=== PATIENT | female | born 1970 | race Caucasian/White ===

== ENCOUNTER 2023-09-15 12:10 | Emergency (ER) | payer OTHER, SELFPAY ==
[2023-09-15 12:43] VITALS: BP 149/83; PULSE 85; TEMP 36.9; O2SAT 96; BMI 29.8
--- NOTE | 2023-09-15 12:50 | XR_ITS ---
The [address] [address] Patient Name: SKYLAR SANDERS MRN: [id number] date: 1970 Sex: F Assigned Patient Location: ER Current Patient Location: ED.MAIN Accession/Order Number: [id number] Exam Date: 09/15/2023 12:55 Report Date: 09/15/2023 13:43 At the request of: STEPHAN WOOD Procedure: XR knee LT 3V HISTORY: Left knee pain and swelling. The patient reportedly fell one month ago. XR knee LT 3V: 09/15/2023 12:55 PM EDT COMPARISON: None. FINDINGS: 3 views of the left knee were obtained. No fracture, dislocation, or joint space narrowing is seen. There is a moderate-sized suprapatellar joint effusion. XR/XR knee LT 3V IMPRESSION: There is a moderate-sized suprapatellar joint effusion, but no fracture or dislocation is seen. If there is clinical concern for possible internal derangement of the knee as a cause for this joint effusion, then an outpatient MRI of the knee could be obtained. Electronically authenticated by: SUYAPA PERDUE Date: 09/15/2023 13:43
--- NOTE | 2023-09-15 13:09 | ED_ITS ---
HPI - Extremity Problem General Chief complaint: Extremity Problem, Nontraumatic Stated complaint: LOWER EXTREMITY PAIN Time Seen by Provider: 09/15/23 13:01 Source: patient Mode of arrival: walk-in Limitations: no limitations History of Present Illness HPI Narrative: Patient here with pain in her left knee and also a little bit in her heel. She had a previous fall. At the time of fall she sliced and had a wound over her distal Achilles area. It is healing up but still sore in that area. She also has pain over the medial posterior aspect of her left knee. The rest extremities are normal. She is seen by nursing staff in triage x-ray. She has not seen a local orthopedic doctor. Related Data Home Medications ?Medication ?Instructions ?Recorded ?Confirmed ibuprofen 600 mg tablet (IBU) 600 mg PO ONCE 09/15/23 09/15/23 Allergies Allergy/AdvReac Type Severity Reaction Status Date / Time Penicillins Allergy Verified 09/15/23 12:48 Exam Narrative Exam Narrative: After being evaluated by the nursing staff she was triaged and had x-rays of her left knee. Upon returning from x-ray I examined her. Both knees were simultaneously complaint. There is no obvious joint effusion on either knee. The patella is not ballotable. There is no deviation of the patella range of motion. Knee range of motion is really not restricted. Anterior and posterior drawer sign were negative on the left side. There is no instability. Medial stressing of the knee reproduces some pain in the posterior medial exterior joint line. Testing for cartilaginous injury was done and she does not have any abnormal response or discomfort. Examining her heel she has a small wound that is healing. There is no pain with palpation over her Achilles area Achilles range of motion is normal and unrestricted. There is no erythema cellulitis or evidence of foreign body. Constitutional Vital Signs, click to edit/add: Last Vital Signs Temp 98.4 F 09/15/23 12:43 Pulse 85 09/15/23 12:43 Resp 14 09/15/23 12:43 BP 149/83 H 09/15/23 12:43 Pulse Ox 96 09/15/23 12:43 O2 Del Method Room Air 09/15/23 12:43 Course Vital Signs Vital signs: Vital Signs Temperature 98.4 F 09/15/23 12:43 Pulse Rate 85 09/15/23 12:43 Respiratory Rate 14 09/15/23 12:43 Blood Pressure 149/83 H 09/15/23 12:43 Pulse Oximetry 96 09/15/23 12:43 Oxygen Delivery Method Room Air 09/15/23 12:43 Temperature 98.4 F 09/15/23 12:43 Pulse Rate 85 09/15/23 12:43 Respiratory Rate 14 09/15/23 12:43 Blood Pressure 149/83 H 09/15/23 12:43 Pulse Oximetry 96 09/15/23 12:43 Oxygen Delivery Method Room Air 09/15/23 12:43 MDM - Extremity (Nontraumatic) MDM Narrative Medical decision making narrative: This patient has some discomfort over the medial joint line with stressing the knee but there is a good endpoint. There is no obvious joint effusion. X-rays were negative of both the heel and the knee area. I would like her to wear knee brace and then follow-up with orthopedics Discharge Plan Discharge Stand Alone Forms: Portal Instructions Chief Complaint: Extremity Problem, Nontraumatic Clinical Impression: Left knee sprain Patient Disposition: Home, Self-Care Time of Disposition Decision: 13:33 Prescriptions / Home Meds: No Action ibuprofen [IBU] 600 mg tablet 600 mg PO ONCE Print Language: Polish Additional Instructions: Wear knee brace for approximately 10 days. Follow-up with orthopedics for further evaluation. May use [id number] NSAIDs as needed Referrals: Physician,Non-Staff, MD [Primary Care Provider] - 1 week
--- NOTE | 2023-09-15 13:19 | XR_ITS ---
The [place] [id number] Patient Name: SKYLAR SANDERS MRN: [id number] date: 1970 Sex: F Assigned Patient Location: ER Current Patient Location: ER Accession/Order Number: [id number] Exam Date: 09/15/2023 13:10 Report Date: 09/15/2023 17:07 At the request of: STEPHAN WOOD Procedure: XR foot LT min 3V HISTORY: Left heel pain after a fall one month ago. XR foot LT min 3V: 09/15/2023 1:10 PM EDT COMPARISON: None. FINDINGS: 3 views of the left foot were obtained. No acute fracture or dislocation is seen. There is a small Sylvester's deformity of the calcaneus. There is a small enthesophyte at the insertion of the Achilles tendon on the calcaneus. There is mild soft tissue prominence in the expected location of the distal Achilles tendon at the level of the posterosuperior aspect of the calcaneus. No joint space narrowing is seen. The tarsometatarsal joints appear within normal limits in alignment. XR/XR foot LT min 3V IMPRESSION: 1. No acute fracture or dislocation is seen. 2. There is mild prominence of the soft tissues in the expected location of the distal Achilles tendon adjacent to the posterosuperior aspect of the calcaneus which suggests the possibility of underlying tendinopathy or strain, but this is nonspecific. If the patient is having symptoms referable to this region, then an outpatient MRI of the ankle could be obtained. Electronically authenticated by: SUYAPA PERDUE Date: 09/15/2023 17:07
== END 2023-09-15 13:45 | disposition home or self-care (01) ==
PROVIDERS: Emergency Provider Emergency Medicine Emergency Medical Services
DX: S83.92XA Sprain of unspecified site of left knee, initial encounter (principal); X58.XXXA Exposure to other specified factors, initial encounter; Z91.81 History of falling
CPT/HCPCS: 73562; 73630; 99284

== ENCOUNTER 2025-04-23 18:57 | Emergency (ER) | payer OTHER, SELFPAY ==
[2025-04-23 19:01] VITALS: BP 166/79; PULSE 72; O2SAT 99; BMI 28.0
--- NOTE | 2025-04-23 19:03 | XR_ITS ---
The [place] [id number] Patient Name: SKYLAR SANDERS MRN: [id number] date: 1970 Sex: F Assigned Patient Location: ER Current Patient Location: ED.MAIN Accession/Order Number: [id number] Exam Date: 04/23/2025 19:28 Report Date: 04/23/2025 19:54 At the request of: KODY VASQUEZ DO Procedure: XR knee RT 4V 4 views of the right knee CLINICAL HISTORY: pain COMPARISON: None FINDINGS: No fracture is identified. Joint spaces preserved. Soft tissues unremarkable. XR/XR knee RT 4V IMPRESSION: Negative acute osseous findings. Impression dictated by: Deniz Morris M.D. 04/23/2025 7:54 PM Dictation Location: [place] [address] Electronically authenticated by: [id number] Y Date: 04/23/2025 19:54
[2025-04-23 19:05] VITALS: TEMP 36.6
--- NOTE | 2025-04-23 19:43 | PC.NURSE ---
right knee pain and swelling after moving furniture and belongings out of one home into another on Tuesday and Tuesday. Since then she has been taking Motrin and her prescription medications which include Gabapentin and muscle relaxers with little to no relief. She has also been elevating the leg and using ice.
--- NOTE | 2025-04-23 20:12 | ED_ITS ---
HPI HPI - General Adult General Chief complaint: Extremity Injury, Lower Stated complaint: RIGHT KNEE SWOLLEN SINCE TUESDAY Time Seen by Provider: 04/23/25 19:39 Source: patient Mode of arrival: walk-in Limitations: no limitations History of Present Illness HPI narrative: Patient is a 54-year-old female that presents with complaints of right knee pain that has been present for 3 days since she was helping her daughter move out of apartment. She denies any specific injury but states there was a lot of stairs. She has been resting for the past 3 days and continues to have swelling and persistent pain and pain with ambulation. She denies any previous injury or surgeries. Most of her pain is located on the medial side of the knee. Related Data Home Medications ?Medication ?Instructions ?Recorded ?Confirmed ibuprofen 600 mg tablet (IBU) 600 mg PO ONCE 09/15/23 09/15/23 Previous Rx's ?Medication ?Instructions ?Recorded prednisone 50 mg tablet 50 mg PO DAILY 5 days #5 tab s 04/23/25 Allergies Allergy/AdvReac Type Severity Reaction Status Date / Time Penicillins Allergy Unknown Verified 04/23/25 19:01 Review of Systems ROS Status of ROS 10 or more systems reviewed and unremark able except as noted in history and below PFSH PFSH Social History Little interest or pleasure in doing things: not at all Feeling down, depressed, or hopeless: not at all Exam Narrative Exam Narrative: General: No distress, age-appropriate, ambulates with antalgic gait Skin: Warm, dry, no pallor. No rash. Head: Normocephalic, atraumatic. Neck: Supple, non-tender. Eye: Pupils are equal, round and EOMI. No scleral icterus. Ears, Nose, Mouth, and Throat: No nasal mucosal hypertrophy. Oral mucosa is moist, no posterior oropharynx erythema, uvula is mid-line Cardiovascular: Regular Rate and Rhythm without murmur, gallop or rub. Respiratory: No accessory muscle use or respiratory distress. Lungs are clear to auscultation, no wheezing, rales or rhonchi Chest Wall: no tenderness Back: No midline thoracic or lumbar vertebral tenderness. Musculoskeletal: Full ROM of all extremities, no calf or popliteal tenderness. Right knee ROM 0?140. Varus/valgus stress negative for pain or instability. Delaney and anterior drawer negative for pain or instability. Pain cannot be reproduced on exam. Medial and lateral joint lines nontender with palpation. No erythema. Mild joint effusion. Neurological: A&O x4. No cranial nerve dysfunction observed. No truncal ataxia. Moves all extremities. Sensation intact. Psychiatric: Cooperative and interactive. Normal mood and affect. Constitutional Vital Signs, click to edit/add: Last Vital Signs Temp 97.8 F 04/23/25 19:05 Pulse 72 04/23/25 19:01 Resp 18 04/23/25 19:01 BP 166/79 H 04/23/25 19:01 Pulse Ox 99 04/23/25 19:01 O2 Del Method Room Air 04/23/25 19:01 Course Vital Signs Vital signs: Vital Signs Pulse Rate 72 04/23/25 19:01 Respiratory Rate 18 04/23/25 19:01 Blood Pressure 166/79 H 04/23/25 19:01 Pulse Oximetry 99 04/23/25 19:01 Oxygen Delivery Method Room Air 04/23/25 19:01 Temperature 97.8 F 04/23/25 19:05 Pulse Rate 72 04/23/25 19:01 Respiratory Rate 18 04/23/25 19:01 Blood Pressure 166/79 H 04/23/25 19:01 Pulse Oximetry 99 04/23/25 19:01 Oxygen Delivery Method Room Air 04/23/25 19:01 Medical Decision Making MDM Narrative Medical decision making narrative: This is a 54-year-old female with 3 days of right knee pain that presented to the ED. The pain started while she was helping her daughter move out of apa tment, there were lots of stairs. She locates the pain as medial knee, pain cannot be reproduced on exam. There is a mild joint effusion. She has full ROM but states it feels stiff. Ligaments are stable. X-ray right knee ordered and reviewed and negative for fracture or dislocation. I discussed results with the patient and her pain is likely stemming from cartilage damage or wear and tear. I did give her 30 mg IM Toradol in the ED. She did drive herself so I will give her [place] 5 mg to go to take at home. We discussed plan for a steroid burst, I prescribed 50 mg prednisone x 5 days at discharge. We also discussed continuing to rest the knee while it is painful with weightbearing by either using a cane, crutches, or walker. She does have a cane at home she can start using. 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 I did discuss follow-up with orthopedics, Dr. Gallegos, his information was placed in the discharge. Patient's pain was controlled in the ED, she was stable for discharge with plan for follow-up with orthopedics. Differential Diagnosis Differential Diagnosis: Knee osteoarthritis, knee fracture, meniscus tear Imaging Data X-ray right knee: Attestation: I have reviewed the pertinent imaging results. Radiologist's impression: ITS Impressions Knee X-Ray 04/23/25 19:03 IMPRESSION: Negative acute osseous findings. Impression dictated by: Deniz Morris M.D. 04/23/2025 7:54 PM Dictation Location: [place] Electronically authenticated by: [id number] Y Date: 04/23/2025 19:54 Discharge Plan Discharge Chief Complaint: Extremity Injury, Lower Clinical Impression: Acute knee pain Patient Disposition: Home, Self-Care Time of Disposition Decision: 20:07 Condition: Good Mode of Transportation: Private Vehicle Prescriptions / Home Meds: New prednisone 50 mg tablet 50 mg PO DAILY 5 Days Qty: 5 0RF No Action ibuprofen [IBU] 600 mg tablet 600 mg PO ONCE Print Language: Macedonian Instructions: Knee Pain (ED) Referrals: Jeff Gallegos DO [Physician, Orthopedics] - 1-2 weeks Physician,Non-Staff, [Primary Care Provider] - 1 week Discharge Date/Time: 04/23/25 20:48
--- OUTSIDE RECORDS SUMMARY | 2025-04-23 20:15 | XMS_ITS | Clinical Summary ---
Author Organization [facility] Address [address] [place] [address] Care Team Providers Care Customer Operations Representative Name Role Phone Pump, Shell APRON TRIMMER Unavailable José Evans MD Primary Care Provider [phone] Allergies Active AllergyReactionsCriticalityNoted DhhxHbcpzffjFtjudwxzepfYgwpg96/27/2018 Other Reaction(s): Unknown Medications MedicationSigDispense QuantityRefillsLast FilledStart DateEnd DateStatus cholecalciferol (Vitamin D-3) 25 MCG (1000 UT) capsule Take 1,000 Units by mouth Daily Pt is unsure of doseActive Multiple Vitamin (multivitamin) capsule Take 1 capsule by mouth DailyActive Cyanocobalamin (Vitamin B-12) [address] under the tongueActive hydroCHLOROthiazide (HYDRODiuril) 25 MG tablet Indications:Essential hypertensionTake 1 tablet (25 mg) by mouth in the morning. 90 tablet 5Active baclofen (Lioresal) 10 MG tablet Indications:Muscle painTake 2 tablets (20 mg) by mouth 2 (two) times a day as needed for muscle spasms 60 tablet 5Active busPIRone (Buspar) 15 MG tablet Indications:Generalized anxiety disorderTake 1 tablet (15 mg) by mouth Daily 90 tablet 6Active gabapentin (Neurontin) 300 MG capsule Indications:Fibromyalgia affecting multiple sitesTake 2 capsules (600 mg) by mouth at bedtime 180 capsule ctive sertraline (Zoloft) 50 MG tablet Indications:Generalized anxiety disorderTake 1 tablet (50 mg) by mouth Daily 90 tablet tive estrogens, conjugated, (Premarin) 1.25 MG tablet Indications:MenopauseTake 1 tablet (1.25 mg) by mouth Daily 90 tablet 5002/25/2026ctive Active Problems ProblemNoted DateDiagnosed DateChronic dufxmmo3401/18/20233589Hdorjiiprdve54/08/2023 Essential dmawlatrqriv66/08/2023Fibromyalgia affecting multiple sites01/18/2023 Generalized anxiety dbshficn00/08/2023H/O: oiwjiynipoef56/08/2023Menopausal gktvhuig92/08/2023Overweight (BMI 25.0-29.9)01/18/2023Recurrent major depressive disorder, in partial bunsjizma18/08/2023Stress at home01/18/2023Surgical sapohysdz94/08/2023Family history of colonic vndlfg4902/14/2020 Encounters DateTypeDepartmentCare JnnpOzclcnvucyc02/15/2025[address]ill [address] [place] [phone] José Evans MD Sxpgpkooi14/04/2025 3:00 PM EDTOffice Visit [facility] [place] [phone] Pump, Shell, APRON TRIMMER Generalized anxiety disorder (Primary Dx); Essential hypertension ; Screening exam for skin pdetea7902/14/2025amboo flowsheet [address] [place] [phone] Pump, Shell, APRON TRIMMER 02/14/20251440Hxlush31/14/2025Orders Only [address] [place] [phone] Pump, Shell, APRON TRIMMER Generalized anxiety disorder (Primary Dx)01/23/2025Telephone [address] [place] [phone] Pump, Shell, APRON TRIMMER from Last 3 Months Immunizations ImmunizationAdministration DatesNext DueInfluenza, injectable, quadrivalent 03/05/2020Influenza, injectable, quadrivalent, preservative free03/29/2016 Influenza, seasonal, wgfzryqtuw23/16/2012Pneumococcal Polysaccharide PPSV23 02/29/2012 Family History Medical HistoryRelationNameCommentsBipolar disorderDaughterAlcohol abuseFather Heart diseaseFatherHypertensionFatherLung cancerFathermesothiliomaFatherCancer Maternal GrandfatherHypertensionMotherColon cancerPaternal GrandfatherBipolar disorderSonRelationNameStatusCommentsDaughterFatherDeceasedMaternal Grandfather MotherPaternal GrandfatherSon Social History Tobacco UseTypesPacks/DayYears UsedDateSmoking Tobacco: NeverSmokeless Tobacco: Never Tobacco Cessation:Counseling Given: Not Answered Alcohol UseStandard Drinks/WeekCommentsNot Currently0 (1 standard drink = 0.6 oz pure alcohol)a few times a year caffeine: 1 cup dailyAUDIT-CAnswerDate Recorded Q1: How often do you have a drink containing alcohol?Monthly or less05/14/2024 Q2: How many drinks containing alcohol do you have on a typical day when you are drinking?1 or Q3: How often do you have six or more drinks on one occasion?Never05/14/2024HQ-2AnswerDate RecordedPatient Health Questionnaire-2 Oywgv975CommentsUnknownSex and Gender InformationValueDate RecordedSex Assigned at BirthNot on fileLegal NddNegtxt48/15/2023 6:43 PM EDT Gender IdentityNot on fileSexual OrientationNot on file Last Filed Vital Signs Vital SignReadingTime TakenCommentsBlood Kwrwhnhy591/6609 2:57 PM EDT Sxtti0918 2:57 PM ZALBjjzudforxo54.8 ??C (98.3 ??F)02/14/2025 2:57 PM EDTRespiratory Mvxp285407/04/2022 9:29 AM ESTOxygen Urryryozrv46%02/14/2025 2:57 PM EDTInhaled Oxygen Concentration--Mwtltm33.6 kg (182 lb 3.2 oz)02/14/2025 2:57 PM BNNFauhot971.4 cm (5' 5.5 )02/14/2025 2:57 PM EDTBody Mass Index29.86 02/14/2025 2:57 PM EDT Plan of Treatment Health MaintenanceDue DateLast DoneCommentsCT Szltjefljgha59/13/1970FIT-DNA 1969FIT1969FOBT1969 9763Lcvtnkhnzmseu13/13/5395Kuagxiwnf00/14/2024 05/26/2023, 04/08/2022, 08/29/2020, Additional history existsCOVID-19 Vaccine ( season)2025Influenza Vaccine (#1)5003/05/2020, 03/29/2016, 03/28/20128443Npovsqrimoc27Colorectal Cancer Screening 03/03/2030Pneumococcal Vaccine: Pediatrics (0 to 5 Years) and At-Risk Patients (6 to 64 Years)Aged Out02/29/2012No longer eligible based on patient's age to complete this topicCervical Cancer ScreeningDiscontinuedHPV/CotestDiscontinued 01/30/2020Pap SmearDiscontinued Procedures Procedure NamePriorityDate/TimeAssociated DiagnosisCommentsBI MAMMOGRAM SCREENING TOMOSYNTHESIS FPPQZDTFBFoblcsx30/14/2023 8:55 AM EST Encounter for screening mammogram for malignant neoplasm of breast UAYCVHMBCKAKmoyxuh67/21/2020 12:00 PM EDT Q - THINPREP(R) TIS AND HPV MRNA E6/E7 RFL HPV 16,18/48Fugjduc56/19/2020 from Last 3 Months or Most Recently Relevant to Health Maintenance Results * Bilateral screening mammogram with tomosynthesis (05/26/2023 8:55 AM EST) Anatomical RegionLateralityModalityBreastBilateralMammographySpecimen (Source) Anatomical Location / LateralityCollection Method / VolumeCollection Time Received Time05/27/2023 2:52 PM EST Impressions 05/30/2023 7:44 AM EST BIRADS 2 - Benign. Follow-up: ?Routine Screening Mamm . Board Certified Radiologists. ??Accredited by the ACR and FDA. MAMMOGRAPHY IS VERY IMPORTANT TO YOUR HEALTH. ??THE [place] CAN[employer] SOCIETY GUIDELINES RECOMMEND THAT WOMEN 40 YEARS OF AGE AND OLDER SHOULD HAVE A MAMMOGRAM EVERY YEAR. A REMINDER LETTER WILL BE SENT AT THE APPROPRIATE TIME. ??THIS FACILITY UTILIZES A REMINDER SYSTEM TO ENSURE ALL PATIENTS RECEIVE REMINDER NOTIFICATIONS AT THE APPROPRIATE TIME BASED ON THE RECOMMENDATIONS OF THIS EXAM. THIS INCLUDES REMINDERS FOR ROUTINE SCREENING MAMMOGRAMS, DIAGNOSTIC MAMMOGRAMSIN WHICH THE PATIENT IS ASKED TO RETURN FOR ADDITIONAL VIEWS, OR OTHER BREAST IMAGING INTERVENTIONSWHEN APPROPRIATE. THE PATIENT WILL BE PLACED IN THE APPROPRIATE REMINDER SYSTEM INCLUDING A REMINDER AT THE APPROPRIATE TIME FOR ANY PENDING ADDITIONAL VIEWS. TRANSCRIBED BY: ? ELECTRONICALLY SIGNED BY: Frank Moore MD Narrative 05/30/2023 7:44 AM EST EXAMINATION: BI MAMMOGRAM SCREENING TOMOSYNTHESIS BILATERAL CLINICAL HISTORY: screening COMPARISON: August 29, 2020. RESULT: Digital mammography and 3D tomosynthesis of bilateral breasts was performed. There are scattered areas of fibroglandular density. There is no suspicious mass, asymmetry, architectural distortion, or calcification. ??Typically benign calcifications. ??Overall appearance stable. ?? Procedure Note Frank Moore MD - 05/30/2023 EXAMINATION: BI MAMMOGRAM SCREENING TOMOSYNTHESIS BILATERAL CLINICAL HISTORY: screening COMPARISON: August 29, 2020. RESULT: Digital mammography and 3D tomosynthesis of bilateral breasts wasperformed. There are scattered areas of fibroglandular density. There is no suspicious mass, asymmetry, architectural distortion, or calcification. Typically benign calcifications. Overall appearance stable. IMPRESSION: BIRADS 2 - Benign. Follow-up: Routine Screening Mamm . Board Certified Radiologists. Accredited by the ACR and FDA. MAMMOGRAPHY IS VERY IMPORTANT TO YOUR HEALTH. THE [place] CANC[employer] SOCIET[employer] GUIDELINES RECOMMEND THAT WOMEN 40 YEARS OF AGE AND OLDER SHOULD HAVE AMAMMOGRAM EVERY YEAR. A REMINDER LETTER WILL BE SENT AT THE APPROPRIATE TIME. THIS FACILITYUTILIZES A REMINDER SYSTEM TO ENSURE ALL PATIENTS RECEIVE REMINDERNOTIFICATIONS AT THE APPROPRIATE TIME BASED ON THE RECOMMENDATIONS OF THISEXAM. THIS INCLUDES REMINDERS FOR ROUTINE SCREENING MAMMOGRAMS, DIAGNOSTICMAMMOGRAMS IN WHICH THE PATIENT IS ASKED TO RETURN FOR ADDITIONAL VIEWS,OR OTHER BREAST IMAGING INTERVENTIONS WHEN APPROPRIATE. THE PATIENT WILLBE PLACED IN THE APPROPRIATE REMINDER SYSTEM INCLUDING A REMINDER AT THEAPPROPRIATE TIME FOR ANY PENDING ADDITIONAL VIEWS. TRANSCRIBED BY: ELECTRONICALLY SIGNED BY: Frank Moore MD Authorizing ProviderResult TypeResult StatusElvia Rodriguezefe DOIMG BI PROCEDURES Final Result * Colonoscopy (03/03/2020 12:00 PM EDT)Anatomical RegionLateralityModality EndoscopySpecimen (Source)Anatomical Location / LateralityCollection Method / VolumeCollection TimeReceived Time03/03/2020 12:00 PM EDT Narrative 03/03/2020 12:00 PM EDT PERFORMED AT [facility] LOCATION:[id number] 10 yrs Procedure Note CONVERSION, GENERIC - 10/27/2022 PERFORMED AT [facility] LOCATION:[id number] 9 yrs Authorizing ProviderResult TypeResult StatusJonathan F DillerENDOSCOPY PROCEDURE ORDERABLESFinal Result * Q - THINPREP(R) TIS AND HPV MRNA E6/E7 RFL HPV 16,18/45 (01/30/2020)Component ValueRef RangeTest MethodAnalysis TimePerformed AtPathologist Signature CLINICAL INFORMATION:None givenNOMS LEGACY EXTERNAL LABLMP:None givenNOMS LEGACY EXTERNAL LABPREV. PAP:None givenN[facility]GAC[facility] EXTERNAL LABPREV. BX:None givenN[facility] EXTER[facility] LABSOURCE:None givenN[facility] STATEMENT OF ADEQUACY:SEE NOTENOMS LEGACY EXTERNAL LABComment: Satisfactory for evaluation. Endocervical/transformation zone component absent. INTERPRETATION/RESULT:Negative for intraepithelial lesion or malignancy.[facility] LABCOMMENT:This Pap test has been evaluated with computer assisted technology.[facility] LABCYTOTECHNOLOGIST:SEE NOTESee Note: [facility]TER[facility] LABComment: Reference Range: ZL, CT(ASCP) CT screening location: [facility], [address] [place] [address], [place] [address]. COMMENTSEE NOTENOMS LEGACY EXTERNAL LABComment: EXPLANATORY NOTE: The Pap is a screening test for cervical cancer. It is not a diagnostic test and is subject to false negative and false positive results. It is most reliable when a satisfactory sample, regularly obtained, is submitted with relevant clinical findings and history, and when the Pap result is evaluated along with historic and current clinical information. HPV MRNA E6/E7Not DetectedNot DetectedNOMS LEGACY EXTERNAL LABComment: This test was performed using the APTIMA HPV Assay ([employer] This assay detects E6/E7 viral messenger RNA (mRNA) from 14 high-risk HPV types (16,18,31,33,35,39,45,51,52,56,58,59,66,68). The analytical performance characteristics of this assay have been determined by [facility]. The modifications have not been cleared or approved by the FDA. This assay has been validated pursuant to the CLIA regulations and is used for clinical purposes. Specimen (Source)Anatomical Location / LateralityCollection Method / Volume Collection TimeReceived Time01/30/2020 Narrative Authorizing ProviderResult TypeResult StatusRobin Regina Hassan NPECW LABSFinal ResultPerforming OrganizationAddressCity/State/ZIP CodePhone Number [facility] from Last 3 Months or Most Recently Relevant to Health Maintenance Insurance Care Teams Team MemberRelationshipSpecialtyStart DateEnd Date Shell Lucas NP [address] [place], [place] [phone] [facility]03/13/24 José Evans MD [address] [place] [address] [facility]02/14/25
--- OUTSIDE RECORDS SUMMARY | 2025-04-23 20:15 | XMS_ITS | Clinical Summary ---
Author Organization [facility] Address [id number] [place] [address] Care Team Providers Care Interchange Agent Name Role Phone Suraj Reid MD Primary Care Provider Allergies Active AllergyReactionsCriticalityNoted LjrmStqbuwcxJzavtlpzxmzXcctt77/27/2018 Medications MedicationSigDispense QuantityRefillsLast FilledStart DateEnd DateStatus baclofen (LIORESAL) 10 mg tablet Take 10 mg by mouth once daily at bedtime.Active gabapentin (NEURONTIN) 100 mg capsule Take 100 mg by mouth 3 (three) times a day.Active busPIRone (BUSPAR) 15 mg tablet Take 15 mg by mouth 2 (two) times a day.01/16/2020Active PREMARIN 1.25 mg tablet Take 1.25 mg by mouth daily.01/21/2020Active sertraline (ZOLOFT) 100 mg tablet Take 100 mg by mouth daily.01/21/2020Active Active Problems ProblemNoted DateDiagnosed DateEncounter for screening tmmyoqejkfo65/03/2020 Family history of colonic cruylv9302/14/2020 Family History Medical HistoryRelationNameCommentsAlcohol abuseBrother 1Alcohol abuseBrother 2 Bipolar disorderDaughterAlcohol abuseFatherHeart diseaseFatherHypertensionFather Lung cancerFatherCancerMaternal GrandfatherHypertensionMotherColon cancer Paternal GrandfatherAlcohol abuseSister 1Alcohol abuseSister 2Bipolar disorder SonBreast cancerNeg HxRelationNameStatusCommentsBrother 1AliveBrother 2Alive DaughterAliveFatherDeceased (Age 61)Maternal GrandfatherDeceasedMaternal GrandmotherDeceasedMotherAlivePaternal GrandfatherDeceasedPaternal Grandmother DeceasedSister 1AliveSister 2AliveSonAlive Social History Tobacco UseTypesPacks/DayYears UsedDateSmoking Tobacco: NeverSmokeless Tobacco: NeverAlcohol UseStandard Drinks/WeekCommentsNot Currently0 (1 standard drink = 0.6 oz pure alcohol)ChildcareAnswerDate OxsibpejNtjpkruqcEnjautq75/12/2019 EmploymentAnswerDate PbiworwrQkalmxrrkxWkcjvnm95/12/2019Purpose - LifeAnswerDate RecordedPurpose and direction in wcyxStdpzmc60/11/2021CommentsNoSex and Gender InformationValueDate RecordedSex Assigned at BirthNot on fileLegal Sex Gbhymw2201/16/2015 11:35 AM EDTGender IdentityNot on fileSexual OrientationNot on file Last Filed Vital Signs Vital SignReadingTime TakenCommentsBlood Pjeweqfk868/4617203/03/2020 9:44 AM EDT Yzqea393103/03/2020 9:44 AM DDMXwfodgaljvs26.4 ??C (97.5 ??F)03/03/2020 8:10 AM EDTRespiratory Fpln919303/03/2020 9:44 AM EDTOxygen Rdharfktsi793%03/03/2020 9:44 AM EDTInhaled Oxygen Concentration--Vuiilh71.2 kg (179 lb)03/03/2020 8:10 AM EDT Hlsenm512.2 cm (5' 7.01 )03/03/2020 8:10 AM EDTBody Mass Index28.0309 8:10 AM EDT Plan of Treatment Health MaintenanceDue DateLast DoneCommentsDepression Wnigeowec31/13/1982Tobacco Ubuevrvva61/13/1982Adult BMI Aciikfklc69/13/1988DTaP,Tdap and Td Vaccines (1 - Tdap)1988Zoster (Shingles) Vaccine (1 of 2)2019Influenza Vaccine 510/7250Qzalkgtciga66/21/203009/ Medical Devices Not on file Insurance Care Teams Team MemberRelationshipSpecialtyStart DateEnd Suraj Reid MD [address] [place] [address] PCP - GeneralFamily Medicine06/23/17
[2025-04-23] MEDS: HYDROCODONE/ACET 5-325 MG TABLET 1 TAB PO (20:41)
[2025-04-23] MEDS: KETOROLAC TROMETHAMINE 30 MG/ML VIAL IM (20:41)
== END 2025-04-23 20:48 | disposition home or self-care (01) ==
LOC: ER 20:12
PROVIDERS: Emergency Provider Internal Medicine
DX: M25.561 Pain in right knee (principal)
CPT/HCPCS: 73564; 96372; 99284; J1885